=== PATIENT | female | born 1985 | race Caucasian/White ===

== ENCOUNTER 2016-08-08 19:57 | Emergency (ER) | payer OTHER ==
[~2016-08-08] VITALS: Ht 162.6 cm; Wt 59.3 kg
[~2016-08-08 19:57] MED LIST: KLONOPIN1 MG PO; TYLENOL WITH C1 EACH PO; ULTRAM50 MG PO; ZOFRAN4 MG PO
[2016-08-08 20:41] LABS: HEMATOCRIT 39.3 % (36.0-46.0); MCH 33.1 PG (29.0-34.0); MCHC 34.4 G/DL (30.0-36.0); MCV 96.3 FL (83-99); MEAN PLAT.VOLUME 9.3 uM^3 (9.5-12.4); PLATELET COUNT 196 K/uL (156-360); RBC DIS.WIDTH-CV 11.5 % (11.8-14.6); RBC DIS.WIDTH-SD 41.1 % (39-53); RED BLOOD COUNT 4.08 M/uL (3.80-5.20); WHITE BLOOD COUNT 7.9 K/uL (4.1-10.2)
[2016-08-08 20:53] LABS: ADD MIUA? YES; BILIRUBIN NEGATIVE; BLOOD SMALL; COLOR YELLOW ((YELLOW)); GLUCOSE (STRIP) NEGATIVE; KETONES NEGATIVE; LEUKOCYTES TRACE; NITRITE NEGATIVE; PROTEIN (STRIP) NEGATIVE; SPECIFIC GRAVITY 1.024 (1.000-1.030); UROBILINOGEN 0.2 MG/DL (0.2-1.0)
[2016-08-08 20:56] LABS: CHLORIDE 107 mEq/L (99-109); POTASSIUM 3.6 mEq/L (3.7-5.4)
[2016-08-08 20:57] LABS: SODIUM 141 mEq/L (136-147)
[2016-08-08 20:59] LABS: GLUCOSE 90 mg/dL (70-99)
[2016-08-08 21:00] LABS: ANION GAP 13 MEQ/L (2-14)
[2016-08-08 21:01] LABS: TOTAL BILIRUBIN 0.4 mg/dL (0.0-1.0)
[2016-08-08 21:02] LABS: ALKALINE PHOSPHATASE 56 IU/L (3-129)
[2016-08-08 21:04] LABS: UREA NITROGEN (BUN) 19 mg/dL (9-23)
[2016-08-08 21:14] LABS: QUANTITATIVE HCG < 4.0 MIU/ML
[2016-08-08 21:25] LABS: GFR ESTIMATE (CALCULATED) > 59 mL/min/
[2016-08-08 21:30] LABS: BACTERIA RARE /HPF; EPITHELIAL CELLS RARE /HPF; MUCUS TRACE /LPF; RED BLOOD CELLS 0-5 /HPF (0-5); UCUL ADDED? NO
[2016-08-08] MEDS ORDERED: MOTRIN800 MG PO (22:14)
[2016-08-08] MEDS ORDERED: PYRIDIUM200 MG PO (22:14)
[2016-08-08 22:30] VITALS: BP 122/67
== END 2016-08-08 22:31 | disposition home or self-care (01) ==
LOC: EME 19:57
DX: R30.0 Dysuria (principal); R10.30 Lower abdominal pain, unspecified
CPT/HCPCS: 80053; 81003; 84702; 85027; 87086; 99281; 99284

== ENCOUNTER 2017-10-12 22:14 | Emergency (ER) | payer OTHER ==
[~2017-10-12] VITALS: Ht 162.6 cm; Wt 59.9 kg
[~2017-10-12 22:14] MED LIST changes: +MOTRIN800 MG PO; +PYRIDIUM200 MG PO
[2017-10-12 22:49] LABS: HEMATOCRIT 38.7 % (36.0-46.0); HEMOGLOBIN 13.9 G/DL (11.9-15.5); MCH 34.2 PG (29.0-34.0); MCHC 35.9 G/DL (30.0-36.0); MCV 95.1 FL (83-99); PLATELET COUNT 194 K/uL (156-360); RBC DIS.WIDTH-CV 11.4 % (11.8-14.6); RBC DIS.WIDTH-SD 39.5 % (39-53); RED BLOOD COUNT 4.07 M/uL (3.80-5.20); WHITE BLOOD COUNT 10.5 K/uL (4.1-10.2)
[2017-10-12 23:00] LABS: ALBUMIN 4.4 g/dL (3.2-4.8); CHLORIDE 106 mEq/L (99-109); POTASSIUM 3.6 mEq/L (3.7-5.4); SODIUM 135 mEq/L (136-147)
[2017-10-12 23:02] LABS: GLUCOSE 92 mg/dL (70-99); TOTAL PROTEIN 7.5 g/dL (6.4-8.3)
[2017-10-12 23:04] LABS: TOTAL BILIRUBIN 0.5 mg/dL (0.0-1.0)
[2017-10-12 23:06] LABS: ALKALINE PHOSPHATASE 69 IU/L (3-129); CREATININE 0.9 mg/dL (0.6-1.3); GFR ESTIMATE (CALCULATED) > 59 mL/min/
[2017-10-12 23:07] LABS: UREA NITROGEN (BUN) 18 mg/dL (9-23)
[2017-10-12 23:08] LABS: AST (GOT) 39 IU/L (2-34)
[2017-10-12 23:09] LABS: ALT (GPT) 26 IU/L (3-49); LIPASE 30 U/L (1.0-51.0)
[2017-10-12 23:15] LABS: QUANTITATIVE HCG < 4.0 MIU/ML
[2017-10-13 03:02] LABS: APPEARANCE CLEAR ((CLEAR)); BILIRUBIN NEGATIVE; BLOOD NEGATIVE; COLOR STRAW ((YELLOW)); GLUCOSE (STRIP) NEGATIVE; KETONES 5; LEUKOCYTES NEGATIVE; NITRITE NEGATIVE; PROTEIN (STRIP) NEGATIVE; SPECIFIC GRAVITY > 1.060 (1.000-1.030); UCUL ADDED? NO; UROBILINOGEN 0.2 MG/DL (0.2-1.0)
[2017-10-13] MEDS ORDERED: ZOFRAN ODT4 MG PO (03:16)
[2017-10-13] MEDS ORDERED: BENTYL10 MG PO (03:29)
[2017-10-13 03:33] VITALS: BP 124/68
== END 2017-10-13 03:35 | disposition home or self-care (01) ==
LOC: EME 22:14
DX: K52.9 Noninfective gastroenteritis and colitis, unspecified (principal); E86.0 Dehydration
CPT/HCPCS: 74177; 80053; 81003; 83690; 84702; 85027; 99281; 99285; J2405; J3010; J7030

== ENCOUNTER 2017-10-21 13:03 | Emergency (ER) | payer OTHER ==
[~2017-10-21] VITALS: Ht 160 cm; Wt 54.2 kg
[~2017-10-21 13:03] MED LIST changes: +BENTYL10 MG PO; +ZOFRAN ODT4 MG PO
[2017-10-21 13:22] VITALS: BP 122/93
== END 2017-10-21 14:07 | disposition left against medical advice (07) ==
LOC: EME 13:03
DX: R10.9 Unspecified abdominal pain (principal); Z53.21 Procedure and treatment not carried out due to patient leaving prior to being seen by health care provider